=== PATIENT | male | born 1960 | race Caucasian/White ===

== ENCOUNTER 2017-11-14 15:50 | Outpatient (CLI) | payer OTHER ==
[~2017-11-14 15:50] MED LIST: IBUPROFEN600 MG PO; NORCO 5-325 TA1 EACH ORAL
--- NOTE | 2017-11-14 17:04 | Diagnostic Imaging Report ---
Indication: Fourth digit pain Technique: 3 views right hand Comparison: none Findings: No acute fractures. No dislocations. The joint spaces are preserved. Impression: No acute process
== END 2017-11-14 17:50 | disposition home or self-care (01) ==
LOC: RAD 15:50
DX: M79.641 Pain in right hand (principal)